=== PATIENT | male | born 2000 | race Caucasian/White ===

== ENCOUNTER 2022-06-04 14:14 | Emergency (ER) | payer MEDICAID, SELFPAY ==
[2022-06-04 14:41] VITALS: BP 119/58; PULSE 88; RESP 20; TEMP 37.3; O2SAT 98; BMI 27.8
--- NOTE | 2022-06-04 14:47 | DI.RAD.S_ITS ---
PROCEDURE: XR HAND RT MIN 3V INDICATIONS: injury TECHNIQUE: 3 views of the hand(s) acquired. COMPARISON: None. FINDINGS: Bones: No fractures or dislocations. Carpal bones are normally aligned. No suspicious bony lesions. Soft tissues: There is a small focus of air on the dorsal side of the hand between the 3rd and 4th metacarpal heads no radiopaque foreign body. IMPRESSION: No acute osseous abnormality. Air in the soft tissues as above. No radiopaque foreign body. Dictated by: Santo Hall M.D. on 06/04/2022 at 15:10 Approved by: Santo Hall M.D. on 06/04/2022 at 15:12
--- NOTE | 2022-06-04 16:17 | ED.UPPEXIN ---
HPI - Extremity Injury (Upper) <Colin GonzalezGUILLERMO may - Last Filed: 06/04/22 16:56> General Chief Complaint: Extremity Injury, Upper Stated Complaint: needs possible stitches rt hand, hit a wall Time Seen by Provider: 06/04/22 15:45 Source: patient Mode of arrival: Ambulatory History of Present Illness HPI narrative: 21-year-old male, current vapor, presents to the emergency department after punching a wall yesterday with his right hand. Patient endorses pain of the 3rd metacarpal with obvious swelling. Mild cut to right hand 3rd MTP that is controlled with a Band-Aid. Related Data Allergies Allergy/AdvReac Type Severity Reaction Status Date / Time No Known Drug Allergies Allergy Verified 06/04/22 14:47 Review of Systems <GUILLERMO Gutierrez - Last Filed: 06/04/22 16:56> Review of Systems Narrative: Narrative: See HPI. GENERAL: Denies chills, fatigue, fever, sweats. HEENT: Denies sinus pain, ear pain, sore throat, difficulty swallowing, dizziness. RESPIRATORY: Denies dyspnea, cough, wheezing, sputum. CARDIOVASCULAR: Denies chest pain, palpitations, edema. GASTROINTESTINAL: Denies nausea, vomiting, abdominal pain, diarrhea, constipation. MSK: Denies weakness. Endorses right hand pain. SKIN: Denies rash, skin lesions, or pruritis. NEUROLOGIC: Denies weakness, dizziness, headache, numbness, confusion. Patient History <GUILLERMO Gutierrez - Last Filed: 06/04/22 16:56> tobacco type: vaping alcohol intake frequency: 0-2 drinks per day Substance Use Type: marijuana Exam <GUILLERMO Gutierrez Last Filed: 06/04/22 16:56> Narrative Exam Narrative: Exam Narrative: GENERAL: This is a well-nourished, well-developed patient, in no acute distress. HEAD: Atraumatic. Normocephalic. EYES: Pupils equal round and reactive. No scleral icterus, injection or drainage. ENT: Nose without bleeding, purulent drainage. Airway patent. NECK: Trachea midline. No JVD. RESPIRATORY: Normal respiratory rate and effort. MSK: Moves all extremities. Normal range of motion, no clubbing or edema. Neurovascularly intact. NEURO: A&O x 3. SKIN: Warm, dry, no rashes or lesions noted. HAND: There is swelling, but no bruising or asymmetry. There is no tenderness to general palpation. Sensation grossly intact. Radial pulse intact. There is no snuff-box tenderness. Patient is able to pronate and supinate without pain. Range of motion is full and without pain. [employer] is strong but weaker on right, due to pain. Inter-digital strength is intact. Initial Vital Signs Initial Vital Signs: Vital Signs Temperature 99.2 F 06/04/22 14:41 Pulse Rate 88 06/04/22 14:41 Respiratory Rate 20 06/04/22 14:41 Blood Pressure 119/58 L 06/04/22 14:41 Pulse Oximetry 98 06/04/22 14:41 Oxygen Delivery Method Room Air 06/04/22 14:41 Reviewed <Meli Pyle DO - Last Filed: 06/09/22 08:06> Initial Vital Signs Initial Vital Signs: Vital Signs Temperature 99.2 F 06/04/22 14:41 Pulse Rate 88 06/04/22 14:41 Respiratory Rate 20 06/04/22 14:41 Blood Pressure 119/58 L 06/04/22 14:41 Pulse Oximetry 98 06/04/22 14:41 Oxygen Delivery Method Room Air 06/04/22 14:41 Course <GUILLERMO Gutierrez - Last Filed: 06/04/22 16:56> Orders Ordered: Discontinued Medications Diphtheria/Tetanus/Acell Pertussis (Tet,Diph,Pertuss(Acell),Vac/Pf 0.5 Ml Syringe) 0.5 ml IM .ONCE ONE Stop: 06/04/22 16:03 Last Admin: 06/04/22 16:30 Dose: 0.5 ml Documented By: SHANKAR Vital Signs Vital signs: Vital Signs - 8 hr 06/04/22 14:41 06/04/22 16:39 Temperature 99.2 F Pulse Rate 88 73 Respiratory Rate 20 18 Blood Pressure 119/58 L 127/80 Pulse Oximetry 98 96 Oxygen Delivery Method Room Air Room Air <Meli Pyle DO - Last Filed: 06/09/22 08:06> Orders Ordered: Discontinued Medications Diphtheria/Tetanus/Acell Pertussis (Tet,Diph,Pertuss(Acell),Vac/Pf 0.5 Ml Syringe) 0.5 ml IM .ONCE ONE Stop: 06/04/22 16:03 Last Admin: 06/04/22 16:30 Dose: 0.5 ml Documented By: SHANKAR Vital Signs Vital signs: Vital Signs - 8 hr 06/04/22 14:41 06/04/22 16:39 Temperature 99.2 F Pulse Rate 88 73 Respiratory Rate 20 18 Blood Pressure 119/58 L 127/80 Pulse Oximetry 98 96 Oxygen Delivery Method Room Air Room Air MDM - Extremity Injury (Upper) <GUILLERMO Gutierrez - Last Filed: 06/04/22 16:56> Differential Diagnosis Differential diagnosis: Likely sprain and strain of wrist, fracture of wrist and fracture of hand Imaging Data Extremity x-ray #1: Radiologist's Impression: [address] [address] XRay Report Signed Patient: Carlton Baxter MR#: [id number] : 2000 Acct:[id number] Age/Sex: 21 / M Date of Service: 06/04/22 Loc: ED Accession Number: [id number] ?? Procedure: XR hand RT min 3V Ordering Provider: Meli Pyle D.O. PROCEDURE:? XR HAND RT MIN 3V ? INDICATIONS:? injury ? TECHNIQUE:? 3 views of the hand(s) acquired.? ? COMPARISON:? None. ? FINDINGS:? ? Bones:? No fractures or dislocations.? Carpal bones are normally aligned.? No suspicious bony lesions.? ? Soft tissues:? There is a small focus of air on the dorsal side of the hand between the 3rd and 4th metacarpal heads no radiopaque foreign body. ? ? IMPRESSION:? No acute osseous abnormality.? Air in the soft tissues as above.? No radiopaque foreign body. ? ? Dictated by: Santo Hall M.D. on 06/04/2022 at 15:10 ? ? Approved by: Santo Hall M.D. on 06/04/2022 at 15:12 ? [facility] Narrative Medical decision making narrative: 21-year-old male presents to the emergency department with right hand pain after punching a wall yesterday. Assessment was encouraging and x-ray was negative. Recommended Rest (modified activity), along with ice, compression wrap/splint-immobilize as directed and elevation above heart. Tylenol or Ibuprofen for discomfort. Discussed plan of care and return precautions with patient, who verbalized understanding and was agreeable with course of action. Discharge Plan Departure Patient Disposition: Home Clinical Impression: Injury of Hand Instructions: DI for Hand Pain Activity Restrictions/Additional Instructions: *You have been diagnosed with a right hand injury. My assessment was encouraging and your x-ray was negative for any broken bones. As we discussed, Rest (modified activity), along with ice, compression wrap/splint-immobilize as directed and elevation above heart. 800 mg Ibuprofen 3 times a day for the next 3-5 days, for discomfort and anti inflammation. Please follow-up with your family doctor if symptoms persist. *What to do: *Please continue to take your regular medications as directed. [ ] New medication prescriptions sent to your pharmacy: [ ] [ ] New medication written as a paper prescription [ x] No new medications given *Please follow up with your primary care provider in 2-3 days, call for an appointment. Let them know you were seen in the Emergency Department and that we ask that you be seen in follow up. We will electronically transmit a record of today's note if your PCP is in our system *If you do not have a primary care provider please contact the [facility] Resource line at [phone]. They will ask some questions about your medical history and help get you set up with a doctor in the community. ? Return to ER if you should have any new, worsening or concerning symptoms, such as worsening pain, severe headache, confusion, chest pain, difficulty breathing, fever greater than 101 F, shaking chills, persistent vomiting to the point that you cannot drink fluids, or other new or worsening symptoms. Referrals: Aurelio Pete DO [Primary Care Provider] - Stand Alone Forms: Patient Portal/API <Meli Pyle DO - Last Filed: 06/09/22 08:06> [facility] Attending Drashan Attestation: I was immediately available in the department for consultation. Documentation has been reviewed.
[2022-06-04] MEDS: TET,DIPH,PERTUSS(ACELL),VAC/PF 0.5 ML SYRINGE IM (16:30)
[2022-06-04 16:39] VITALS: BP 127/80; PULSE 73; RESP 18; O2SAT 96
== END 2022-06-04 16:40 | disposition home or self-care (01) ==
PROVIDERS: Emergency Provider Registered Nurse; PCP Family Medicine
DX: S69.91XA Unspecified injury of right wrist, hand and finger(s), initial encounter (principal); X58.XXXA Exposure to other specified factors, initial encounter; Z23 Encounter for immunization
CPT/HCPCS: 73130; 90471; 99283; 90715